=== PATIENT | male | born 1970 | race African-American/Black ===

== ENCOUNTER 2021-03-17 14:24 | Inpatient (IN) ==
[2021-03-17] MEDS ORDERED: diphenhydrAMINE CAP 25 MG CAPSULE PO PRN (15:36)
[2021-03-17] MEDS ORDERED: ALUMINUM/MAGNES/SIMETH MAX STR 30 ML UDCUP PO PRN (15:36)
[2021-03-17] MEDS ORDERED: ONDANSETRON 4 MG/2 ML VIAL IV PRN (15:36)
[2021-03-17] MEDS ORDERED: ZALEPLON 5 MG CAPSULE PO PRN (15:36)
[2021-03-17] MEDS ORDERED: MAGNESIUM SULF RIDER 4 GM/100 ML PREMIX IV PRN (15:36)
[2021-03-17] MEDS ORDERED: MAGNESIUM SULF RIDER 2 GM/50 ML PREMIX IV PRN (15:36)
[2021-03-17 15:37] LABS: Basophils % 0.2 % (0.0-0.8); Eosinophils % 0.1 % (0.00-10.9); Hematocrit 38.9 VOL% (42.0-52.0); Hemoglobin 12.9 GM/DL (14.0-18.0); Immature Granulocytes % 0.8 %; Immature Granulocytes Absolute 0.16 #; Lymphocytes # 2.1 10*3/uL (1.4-4.0); Lymphocytes % 10.4 % (21.2-54.2); Mean Corpuscular HGB Conc 33.2 GM/DL (32-36); Mean Corpuscular Volume 85.9 FL (87-102); Mean Platelet Volume 9.5 FL (9.6-12.0); Monocytes % 5.5 % (1.7-12.7); Platelet Count 330 T/CUMM (130-400); Red Blood Count 4.53 MC/CUMM (3.8-5.5); Red Cell Distribution Width 14.5 % (9.3-17.3)
[2021-03-17] MEDS ORDERED: HydrOXYzine PAMOATE 25 MG CAPSULE PO PRN (16:21)
[2021-03-17 16:22] LABS: INR 1.1; Partial Thromboplastin Time 30.1 SECS (23.9-33.8)
[2021-03-17 16:47] LABS: Alanine Aminotransferase 42 U/L (16-61); Albumin 3.6 G/DL (3.4-5.0); Alkaline Phosphatase 84 U/L (45-117); Aspartate Amino Transferase 26 U/L (0-37); Bilirubin,Total < 0.39 MG/DL (0.20-1.00); Blood Urea Nitrogen 25 MG/DL (7-18); Calcium 8.8 MG/DL (8.5-10.1); Carbon Dioxide 25 MMOL/L (21-32); Estimated Glom Filtration Rate 72 ML/MIN; Glucose 105 MG/DL (74-106); Osmolality,Calculated 278.7 MOS/KG (273-304); Potassium 3.3 MMOL/L (3.5-5.1); Sodium 138 MMOL/L (136-145); Total Protein 7.2 G/DL (6.4-8.2)
[2021-03-17] MEDS ORDERED: ATORVASTATIN 20 MG TABLET PO SCH (17:00)
[2021-03-17] MEDS ORDERED: POTASSIUM CHLORIDE 20 MEQ TABLET PO STA (17:05)
[2021-03-17 18:32] LABS: Bilirubin,Urine Negative (Negative); Blood, Urine Moderate mg/dL (Negative); Glucose,Urine (UA) Negative (Negative); Ketones,Urine Negative (Negative); Mucus,Urine Occasional /LPF (Occasional); Nitrite,Urine Negative (Negative); Protein,Urine Negative; RBC,Urine 7 /HPF (0-4); Squamous Epithelial Cell,Urine Occasional /HPF (0-10); Urine Appearance CLOUDY (Clear); Urine Color Yellow (Yellow); Urine Specific Gravity 1.016 (1.001-1.035); Urine Urobilinogen < 2.0 EU/DL (0.2-1.0)
[2021-03-17 18:36] LABS: Barbiturates Screen,Urine Negative (Negative); Benzodiazepines Screen,Urine Negative (Negative); Cannabinoid Screen,Urine Negative (Negative); Opiate Screen,Urine Negative (Negative); Phencyclidine Screen,Urine Negative (Negative)
[2021-03-17] MEDS ORDERED: traZODone 50 MG TABLET PO SCH (21:00)
[2021-03-17] MEDS: SODIUM CHLORIDE 0.45% 1,000 ML IV SCH (21:05)
[2021-03-17] MEDS: METOPROLOL TARTRATE 50 MG TABLET PO SCH (21:05)
[2021-03-17] MEDS: FLUTICASONE 50 MCG NASAL SPRAY 16 GM BOTTLE BOTH NARES SCH (21:50)
[2021-03-18] MEDS: SODIUM CHLORIDE 0.45% 1,000 ML IV SCH ×4 (01:38→21:45)
[2021-03-18 06:29] LABS: Basophils # 0.1 10*3/uL (0.0-0.2); Basophils % 0.3 % (0.0-0.8); Eosinophils # 0.1 10*3/uL (0.0-0.87); Eosinophils % 0.8 % (0.00-10.9); Hematocrit 36.1 VOL% (42.0-52.0); Hemoglobin 11.9 GM/DL (14.0-18.0); Immature Granulocytes % 0.5 %; Immature Granulocytes Absolute 0.09 #; Lymphocytes # 3.2 10*3/uL (1.4-4.0); Lymphocytes % 18.7 % (21.2-54.2); Mean Corpuscular Volume 85.7 FL (87-102); Mean Platelet Volume 9.9 FL (9.6-12.0); Monocytes % 6.5 % (1.7-12.7); Neutrophils % 73.2 % (38.7-73.9); Platelet Count 331 T/CUMM (130-400); Red Blood Count 4.21 MC/CUMM (3.8-5.5); Red Cell Distribution Width 14.6 % (9.3-17.3)
[2021-03-18 06:51] LABS: Albumin 3.2 G/DL (3.4-5.0); Bilirubin,Total 0.7 MG/DL (0.20-1.00); Calcium 8.1 MG/DL (8.5-10.1); Osmolality,Calculated 279.5 MOS/KG (273-304); Potassium 2.9 MMOL/L (3.5-5.1); Risk Ratio 4.66; Total Protein 6.4 G/DL (6.4-8.2)
[2021-03-18] MEDS ORDERED: MAGNESIUM SULF RIDER 2 GM/50 ML PREMIX IV PRN (07:33)
[2021-03-18] MEDS ORDERED: POTASSIUM CHLORIDE RIDER 10 MEQ/100 ML PREMIX IV PRN (07:33)
[2021-03-18] MEDS ORDERED: POTASSIUM CHLORIDE 20 MEQ TABLET PO ONE (07:37)
[2021-03-18] MEDS: PANTOPRAZOLE 40 MG TABLET PO SCH (08:49)
[2021-03-18] MEDS: METOPROLOL TARTRATE 50 MG TABLET PO SCH (08:49)
[2021-03-18] MEDS: ASPIRIN EC 81 MG TABLET PO SCH (08:49)
[2021-03-18] MEDS ORDERED: SERTRALINE 100 MG TABLET PO SCH (09:00)
[2021-03-18] MEDS ORDERED: methylPREDNISolone SOD SUC 125 MG/2 ML VIAL IV ONE (09:12)
[2021-03-18] MEDS ORDERED: diphenhydrAMINE 50 MG/1 ML VIAL IV ONE (09:12)
[2021-03-18] MEDS ORDERED: diphenhydrAMINE CAP 50 MG CAPSULE PO ONE (10:00)
[2021-03-18] MEDS ORDERED: DIAZEPAM 5 MG TABLET PO ONE (10:00)
[2021-03-18] MEDS: FAMOTIDINE 20 MG/2 ML VIAL IV SCH ×2 (10:17→21:41)
[2021-03-18] MEDS ORDERED: LIDOCAINE 1%/EPI INJ 20 ML VIAL ONE (10:38)
[2021-03-18] MEDS ORDERED: HEPARIN/NACL 0.9% 2 UNITS/ML 2,000 UNIT/1,000 ML BAG IV ONE (10:38)
[2021-03-18] MEDS ORDERED: HEPARIN/NACL 0.9% 2 UNITS/ML 1,000 UNIT/500 ML BAG IV ONE (11:35)
[2021-03-18] MEDS ORDERED: LIDOCAINE 1% 20 ML VIAL ONE (11:35)
[2021-03-18] MEDS ORDERED: fentaNYL 100 MCG/2 ML VIAL ONE (14:33)
[2021-03-18] MEDS ORDERED: MIDAZOLAM 2 MG/2 ML VIAL ONE (14:33)
[2021-03-18] MEDS ORDERED: HEPARIN 5,000 UNIT/1 ML VIAL ONE (14:56)
[2021-03-18] MEDS ORDERED: NITROGLYCERIN DRIP 50 MG/250 ML BOTTLE IV ONE (14:57)
[2021-03-18] MEDS ORDERED: CLOPIDOGREL 300 MG TABLET ONE (15:00)
[2021-03-18] MEDS ORDERED: CLOPIDOGREL 75 MG TABLET PO ONE (15:35)
[2021-03-18] MEDS: FLUTICASONE 50 MCG NASAL SPRAY 16 GM BOTTLE BOTH NARES SCH (19:20)
[2021-03-18] MEDS: methylPREDNISolone SOD SUC 40 MG/1 ML VIAL IV SCH (21:41)
[2021-03-19] MEDS: METOPROLOL TARTRATE 50 MG TABLET PO SCH ×2 (01:11→09:47)
[2021-03-19] MEDS: SODIUM CHLORIDE 0.45% 1,000 ML IV SCH ×2 (01:11→09:53)
[2021-03-19 05:48] LABS: Basophils % 0.1 % (0.0-0.8); Hematocrit 35.9 VOL% (42.0-52.0); Hemoglobin 12.1 GM/DL (14.0-18.0); Immature Granulocytes % 0.7 %; Immature Granulocytes Absolute 0.15 #; Lymphocytes # 1.9 10*3/uL (1.4-4.0); Lymphocytes % 8.8 % (21.2-54.2); Mean Corpuscular HGB Conc 33.7 GM/DL (32-36); Mean Corpuscular Volume 85.3 FL (87-102); Mean Platelet Volume 9.5 FL (9.6-12.0); Monocytes % 3.8 % (1.7-12.7); Neutrophils % 86.6 % (38.7-73.9); Platelet Count 304 T/CUMM (130-400); Red Blood Count 4.21 MC/CUMM (3.8-5.5); Red Cell Distribution Width 14.5 % (9.3-17.3); White Blood Count 21.9 T/CUMM (4-12)
[2021-03-19 06:07] LABS: Albumin 2.9 G/DL (3.4-5.0); Bilirubin,Total 0.4 MG/DL (0.20-1.00); Calcium 8.4 MG/DL (8.5-10.1); Potassium 3.2 MMOL/L (3.5-5.1); Total Protein 6.6 G/DL (6.4-8.2)
[2021-03-19] MEDS ORDERED: ATORVASTATIN 40 MG TABLET PO SCH (09:00)
[2021-03-19] MEDS ORDERED: CLOPIDOGREL 75 MG TABLET PO SCH (09:00)
[2021-03-19] MEDS: PANTOPRAZOLE 40 MG TABLET PO SCH (09:47)
[2021-03-19] MEDS: ASPIRIN EC 81 MG TABLET PO SCH (09:47)
[2021-03-19] MEDS: FLUTICASONE 50 MCG NASAL SPRAY 16 GM BOTTLE BOTH NARES SCH (09:49)
[2021-03-19] MEDS: FAMOTIDINE 20 MG/2 ML VIAL IV SCH (09:51)
[2021-03-19] MEDS: methylPREDNISolone SOD SUC 40 MG/1 ML VIAL IV SCH (09:52)
[2021-03-19] MEDS: POTASSIUM CHLORIDE 20 MEQ TABLET PO PRN ×4 (10:47→13:58)
[2021-03-19 13:12] VITALS: BP 138/65
[2021-03-20] MEDS ORDERED: ENALAPRIL 20 MG TABLET PO SCH (09:00)
== END 2021-03-19 14:24 | disposition home or self-care (01) | DRG 247 ==
LOC: EDBD → EDUNIT# → N.ED 14:24 → N.EDINP 15:36 → N.TELEN 20:20
PROVIDERS: ADMIT Internal Medicine Interventional Cardiology; ATTEND Internal Medicine Interventional Cardiology
PROC: CLCCHCL (ICD-10-PCS; 2021-03-18 14:15)